=== PATIENT | male | born 1950 | race Caucasian/White ===

== ENCOUNTER 2022-05-22 14:54 | Outpatient (CLI) | payer MEDICARE | END 2022-05-22 14:55 | disposition home or self-care (01) | LOC: BURCT 14:54 | PROVIDERS: ATTEND Family Medicine | DX: R10.32 Left lower quadrant pain (principal); R10.11 Right upper quadrant pain; R19.7 Diarrhea, unspecified; R68.81 Early satiety; R93.2 Abnormal findings on diagnostic imaging of liver and biliary tract | CPT/HCPCS: 74150 ==